=== PATIENT | female | born 2000 | race Caucasian/White ===

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

== ENCOUNTER 2022-08-05 13:39 | Emergency (ER) | payer OTHER, SELFPAY ==
[2022-08-05 15:06] VITALS: BP 129/76; PULSE 91; RESP 16; TEMP 36.4; O2SAT 100
--- NOTE | 2022-08-05 16:35 | ED.GENADULT ---
HPI - General Adult General Chief complaint: Urogenital-Female Stated complaint: uti Time Seen by Provider: 08/05/22 16:35 Source: patient Mode of arrival: ambulatory Limitations: no limitations History of Present Illness HPI narrative: 22-year-old female patient presents to the [facility] with complaints of urinary symptoms that started yesterday. Patient states she has had pain with urination, urgency, frequency and pressure to Cailin abdomen. Patient states she did get off of her. About 2 days ago. Patient states she is sexually active but that has been with only 1 person for the past 4 years and does not have any concerns for STDs. When questioned about her he allergic reaction to antibiotics patient states that she is not aware of any reactions due to this happen when she was very young and was only going by what her mother has told her. Patient states this far she is concerned she has never had any allergic reactions that she knows of. Related Data Allergies Allergy/AdvReac Type Severity Reaction Status Date / Time metoclopramide [From Reglan] Allergy Intermediate Nervousness Verified 10/04/21 17:39 cefprozil Allergy Mild Hives Verified 10/04/21 17:39 Cephalosporins Allergy Mild Hives Verified 10/04/21 17:39 nitrofurantoin Allergy Mild Hives Verified 10/04/21 17:39 Penicillins Allergy Mild Hives Verified 10/04/21 17:39 sulfamethoxazole Allergy Mild Hives / Verified 10/04/21 17:39 Red Face tramadol Allergy Mild HIVES Verified 10/04/21 17:39 trimethoprim Allergy Mild Hives / Verified 10/04/21 17:39 Red Face vancomycin Allergy Mild Itching Verified 10/04/21 17:39 NITRATE Allergy Mild Hives Uncoded 10/04/21 17:39 Review of Systems Review of Systems: CONSTITUTIONAL: Denies fever, chills, or sweats. EYES: Denies visual changes, redness, or discharge. ENT: Denies rhinorrhea, congestion, sore throat, or otalgia. CARDIOVASCULAR: Denies chest pain, palpitations, or edema. RESPIRATORY: Denies cough or dyspnea. GASTROINTESTINAL: Positive lower abdominal pressure, nausea, vomiting, or diarrhea. GENITOURINARY: Positive dysuria, positive hematuria. SKIN: Denies rash or itching. MUSCULOSKELETAL: Denies back pain, joint pain, or myalgia. NEUROLOGIC: Denies headache, numbness, or weakness. PSYCHIATRIC: Denies anxiety or depression. [facility] Past Medical History Medical History Anemia Anxiety (normal spontaneous vaginal delivery) and not yet delivered STD (female) VSD (ventricular septal defect) Surgical History Surgical History No history of previous surgery Family History Family History Father Diabetes mellitus Social History Social History Tobacco type: e-cigarettes/vaping Alcohol intake: never Substance use: never Gender identity (if verbalized by the patient): Female Sexual Orientation (if Verbalized by the Patient): Straight or Heterosexual Spiritual care concerns: No Comments At the time of my signature I agree with nursing past medical history, surgical, social, and family history. There is no relevant family history pertinent to the presenting complaint. Exam Narrative: GENERAL: Well-appearing, well-nourished, and in no acute distress. HEAD: Normocephalic, atraumatic. EYES: PERRLA and EOMI. ENT: Nares clear, no rhinorrhea or epistaxis. Mucous membranes moist. NECK: Supple. No lymphadenopathy CHEST: Clear to auscultation. No respiratory distress. HEART: Regular rate and rhythm. No murmur heard. Normal peripheral pulses. ABDOMEN: Soft, suprapubic tenderness on palpation, nondistended, normal active bowel sounds. No CVA tenderness on percussion EXTREMITIES: Normal range of motion. No edema. SKIN: Warm, dry, no rash. NEURO: No focal deficits. Alert and oriented x3.
== END 2022-08-05 16:50 | disposition home or self-care (01) ==
PROVIDERS: Emergency Provider Nurse Practitioner Family
DX: N39.0 Urinary tract infection, site not specified (principal); F17.290 Nicotine dependence, other tobacco product, uncomplicated
CPT/HCPCS: 81003; 81025; 87077; 87086; 87186; 99213; G0463

== ENCOUNTER 2022-10-15 15:39 | Emergency (ER) | payer OTHER, SELFPAY ==
[2022-10-15 15:55] VITALS: BP 132/70; PULSE 88; RESP 16; TEMP 36.4; O2SAT 100
[2022-10-15 15:56] VITALS: BP 132/70; PULSE 88; RESP 16; TEMP 36.4; O2SAT 100
--- NOTE | 2022-10-15 16:08 | ED.URI ---
HPI - URI/Sore Throat General Chief Complaint: Upper Respiratory Infection Stated Complaint: fever/sore throat Time Seen by Provider: 10/15/22 16:08 Source: patient Mode of arrival: ambulatory Limitations: no limitations History of Present Illness HPI Narrative: 22-year-old female presents with complaint of headache, sore throat, body aches, chills, fever for 2 days. States temp 103? F and it sinus. Is taking Motrin and Tylenol to treat the fever. Denies nausea vomiting diarrhea. Reports strep exposure at work. Works at a daycare. All systems reviewed and negative except as noted above. Related Data Allergies Allergy/AdvReac Type Severity Reaction Status Date / Time metoclopramide [From Reglan] Allergy Intermediate Nervousness Verified 10/15/22 15:56 cefprozil Allergy Mild Hives Verified 10/15/22 15:56 Cephalosporins Allergy Mild Hives Verified 10/15/22 15:56 nitrofurantoin Allergy Mild Hives Verified 10/15/22 15:56 Penicillins Allergy Mild Hives Verified 10/15/22 15:56 sulfamethoxazole Allergy Mild Hives / Verified 10/15/22 15:56 Red Face tramadol Allergy Mild HIVES Verified 10/15/22 15:56 trimethoprim Allergy Mild Hives / Verified 10/15/22 15:56 Red Face vancomycin Allergy Mild Itching Verified 10/15/22 15:56 NITRATE Allergy Mild Hives Uncoded 10/15/22 15:56 Review of Systems Review of Systems: CONSTITUTIONAL: reports fatigue, fever, chills, or sweats. EYES: Denies visual changes, redness, or discharge. ENT: Denies rhinorrhea, congestion . Reports sore throat. Denies otalgia. CARDIOVASCULAR: Denies chest pain, palpitations, or edema. RESPIRATORY: Denies cough or dyspnea. GASTROINTESTINAL: Denies abdominal pain, nausea, vomiting, or diarrhea. GENITOURINARY: Denies dysuria or hematuria. SKIN: Denies rash or itching. MUSCULOSKELETAL: Denies back pain, joint pain. Reports myalgia. NEUROLOGIC: Denies headache, numbness, or weakness. PSYCHIATRIC: Denies anxiety or depression. All other systems reviewed are negative, except as documented in HPI. [facility] Past Medical History Medical History Anemia Anxiety (normal spontaneous vaginal delivery) and not yet delivered STD (female) VSD (ventricular septal defect) Surgical History Surgical History No history of previous surgery Family History Family History Father Diabetes mellitus Social History Social History Tobacco type: e-cigarettes/vaping Alcohol intake: never Substance use: never Living arrangements: with family Gender identity (if verbalized by the patient): Female Sexual Orientation (if Verbalized by the Patient): Straight or Heterosexual Spiritual care concerns: No Comments At time of signature, agree with nursing past medical, surgical, social and family history. There is no relevant family history pertinent to the presenting complaint. Exam Narrative: GENERAL: This is a well-nourished, well-developed patient . Ill-appearing but in no distress. HEAD: normocephalic, atraumatic. EYES: PERRL. Sclera clear/white. Vision is grossly intact. EARS: External ears normal, auditory canals clear and without drainage, TMs normal without perforation. Hearing grossly intact. NOSE: External nose normal with no obvious nasal discharge, nares without redness, no rhinorrhea. THROAT: Mucous membranes moist, erythematous, swelling. Tonsils 1+ bilaterally. No exudates. NECK: Neck supple, non-tender without lymphadenopathy, masses or thyromegaly. CARDIOVASCULAR: Regular rate and rhythm without murmurs, gallops, or rubs. RESPIRATORY: Clear to auscultation. Breath sounds equal bilaterally. No wheezes, rales, or rhonchi. SKIN: warm, Dry, intact with no suspicious lesions or rash, good texture and turgor. NEURO: awake,
== END 2022-10-15 16:25 | disposition home or self-care (01) ==
PROVIDERS: Emergency Provider Nurse Practitioner Family
DX: J02.9 Acute pharyngitis, unspecified (principal); F17.290 Nicotine dependence, other tobacco product, uncomplicated
CPT/HCPCS: 87081; 87880; 99213; G0463

== ENCOUNTER 2022-11-17 18:30 | Emergency (ER) | payer OTHER, SELFPAY ==
[2022-11-17 18:36] VITALS: BP 128/86; PULSE 100; RESP 18; TEMP 37.2; O2SAT 100
--- NOTE | 2022-11-17 18:56 | ED.URI ---
HPI - URI/Sore Throat General Chief Complaint: Upper Respiratory Infection Stated Complaint: sore throat Time Seen by Provider: 11/17/22 18:48 Source: patient Mode of arrival: ambulatory Limitations: no limitations History of Present Illness HPI Narrative: Patient presents today complaining of headache, sore throat, body aches, nausea x2 days with fever up to 103.3 today. She currently rates her pain 5/10 and has been taking Tylenol and ibuprofen with some relief. Patient works at a daycare. She had COVID-19 3 weeks ago. Related Data Home Medications Medication Instructions Recorded Confirmed No Home Medications 11/17/22 11/17/22 Allergies Allergy/AdvReac Type Severity Reaction Status Date / Time metoclopramide [From Reglan] Allergy Intermediate Nervousness Verified 11/17/22 18:44 cefprozil Allergy Mild Hives Verified 11/17/22 18:44 Cephalosporins Allergy Mild Hives Verified 11/17/22 18:44 nitrofurantoin Allergy Mild Hives Verified 11/17/22 18:44 Penicillins Allergy Mild Hives Verified 11/17/22 18:44 sulfamethoxazole Allergy Mild Hives / Verified 11/17/22 18:44 Red Face tramadol Allergy Mild HIVES Verified 11/17/22 18:44 trimethoprim Allergy Mild Hives / Verified 11/17/22 18:44 Red Face vancomycin Allergy Mild Itching Verified 11/17/22 18:44 NITRATE Allergy Mild Hives Uncoded 10/15/22 15:56 Review of Systems Review of Systems: CONSTITUTIONAL: + body aches, fever EYES: Denies visual changes, redness, or discharge. ENT: Denies rhinorrhea, congestion, or otalgia.+ sore throat CARDIOVASCULAR: Denies chest pain, palpitations, or edema. RESPIRATORY: Denies cough or dyspnea. GASTROINTESTINAL: Denies abdominal pain, vomiting, or diarrhea.+ nausea GENITOURINARY: Denies dysuria or hematuria. SKIN: Denies rash, itching, or wounds. MUSCULOSKELETAL: Denies back pain, joint pain, or myalgia. NEUROLOGIC: Denies numbness, tingling, or weakness.+ headache PSYCH: Denies depression or anxiety. PMFSH Past Medical History Medical History Anemia Anxiety (normal spontaneous vaginal delivery) and not yet delivered STD (female) VSD (ventricular septal defect) Surgical History Surgical History No history of previous surgery Family History Family History Father Diabetes mellitus Social History Social History Tobacco type: e-cigarettes/vaping Alcohol intake: never Substance use: never Living arrangements: with family Gender identity (if verbalized by the patient): Female Sexual Orientation (if Verbalized by the Patient): Straight or Heterosexual Spiritual care concerns: No Comments At time of signature, I have reviewed and agree with nursing past medical, surgical, social and family history unless otherwise noted. Please see nursing chart for further information. There is no relevant family history pertinent to the presenting complaint Exam Narrative: GENERAL: Well-appearing, well-nourished, and in no acute distress. HEAD: Normocephalic, atraumatic. EYES: EOMI. No redness or drainage. Conjunctivae normal. ENT: Mucous membranes pink and moist. Nares clear. No rhinorrhea. TMs normal bilaterally. Throat slightly erythematous without edema or exudate. Uvula midline. NECK: Normal AROM. Supple. No lymphadenopathy. CHEST: No respiratory distress. Clear to auscultation. HEART: Regular rate and rhythm. Loud murmur appreciated, patient aware. EXTREMITIES: Normal range of motion. No edema. SKIN: Warm, dry, no rash. Capillary refill normal. Normal skin turgor. NEURO: No focal deficits. Alert and oriented x3. Gait steady. PSYCH: Normal affect. No signs of depression or anxiety. Course Course Level of Care: Express Care Visit Vital Signs V
== END 2022-11-17 19:20 | disposition home or self-care (01) ==
PROVIDERS: Emergency Provider Nurse Practitioner
DX: B34.9 Viral infection, unspecified (principal); F17.290 Nicotine dependence, other tobacco product, uncomplicated
CPT/HCPCS: 87081; 87804; 87880; 99213; G0463

== ENCOUNTER 2023-05-18 17:29 | Emergency (ER) | payer OTHER, SELFPAY ==
[2023-05-18 17:43] VITALS: BP 118/81; PULSE 135; RESP 16; TEMP 39.1; O2SAT 99
--- NOTE | 2023-05-18 17:43 | ED.URI ---
HPI - URI/Sore Throat General Chief Complaint: Upper Respiratory Infection Stated Complaint: Sore Throat Time Seen by Provider: 05/18/23 17:47 Source: patient, RN notes reviewed and old records reviewed Mode of arrival: ambulatory Limitations: no limitations History of Present Illness HPI Narrative: 23-year-old female presents to the [facility] with complaints of a sore throat that started yesterday. Reports fevers of 103. Reports sore throat for 2-3 days. Fever started last night. Patient denies any cough, urinary symptoms. No chest pain. Denies abdominal pain Reports that she does get followed by a can washer for her murmur. Onset (ago): day(s) Related Data Home Medications Medication Instructions Recorded Confirmed No Home Medications 11/17/22 05/18/23 Allergies Allergy/AdvReac Type Severity Reaction Status Date / Time metoclopramide [From Reglan] Allergy Intermediate Nervousness Verified 05/18/23 17:41 cefprozil Allergy Mild Hives Verified 05/18/23 17:41 Cephalosporins Allergy Mild Hives Verified 05/18/23 17:41 nitrofurantoin Allergy Mild Hives Verified 05/18/23 17:41 Penicillins Allergy Mild Hives Verified 05/18/23 17:41 sulfamethoxazole Allergy Mild Hives / Verified 05/18/23 17:41 Red Face tramadol Allergy Mild HIVES Verified 05/18/23 17:41 trimethoprim Allergy Mild Hives / Verified 05/18/23 17:41 Red Face vancomycin Allergy Mild Itching Verified 05/18/23 17:41 NITRATE Allergy Mild Hives Uncoded 05/18/23 17:41 Review of Systems Review of Systems: All systems reviewed & are unremarkable except as noted in HPI and below Constitutional: Constitutional: Reports as per HPI and Reports fever(s) Eyes: Eyes: Reports no additional eye complaints ENT: Reports as per HPI and Reports sore throat Cardiovascular: Cardiovascular: Reports no additional cardiovascular complaints, Denies chest pain and Denies dyspnea Respiratory: Respiratory: Reports no additional respiratory complaints, Denies chest congestion, Denies cough and Denies dyspnea Gastrointestinal: Gastrointestinal: Reports no additional gastrointestinal complaints, Denies abdominal pain, Denies nausea and Denies vomiting Musculoskeletal: Musculoskeletal: Reports no additional musculoskeletal complaints Integumentary/Breasts: Skin/Breast: Reports system reviewed and no additional complaints, except as docu Neurologic: Reports system reviewed and no additional complaints, except as documented Psychiatric: Psychiatric: Reports no additional psychiatric complaints Allergic/Immunologic: Allergic/Immunologic: Reports no additional allergic/immunologic complaints PMFSH Past Medical History Medical History Anemia Anxiety (normal spontaneous vaginal delivery) and not yet delivered STD (female) VSD (ventricular septal defect) Surgical History Surgical History No history of previous surgery Family History Family History Father Diabetes mellitus Social History Social History Tobacco type: e-cigarettes/vaping Alcohol intake: never Substance use: never Living arrangements: with family Gender identity (if verbalized by the patient): Female Sexual Orientation (if Verbalized by the Patient): Straight or Heterosexual Spiritual care concerns: No Comments At the time of my signature, I reviewed and agree with the nursing past medical, surgical, social, and family history. There is no relevant family history pertinent to the patient complaint. Exam Const: General: cooperative, healthy appearing, comfortable, no acute distress, well developed, alert and well nourished Nutritional Appearance: well nourished Orientation/consciousness: patient oriented x3 Limitations: no limitations HENMT: Head: no
[2023-05-18] MEDS: ONDANSETRON HCL ODT 4 MG TABLET SUBLINGUAL (17:49)
[2023-05-18 17:50] VITALS: TEMP 39.1
[2023-05-18] MEDS: IBUPROFEN 600 MG TABLET PO (17:50)
[2023-05-18 18:12] VITALS: TEMP 38.6
[2023-05-18 18:27] VITALS: PULSE 123; TEMP 38.6; O2SAT 97
== END 2023-05-18 18:33 | disposition home or self-care (01) ==
PROVIDERS: Emergency Provider Nurse Practitioner
DX: B34.9 Viral infection, unspecified (principal); F17.219 Nicotine dependence, cigarettes, with unspecified nicotine-induced disorders; Z20.822 Contact with and (suspected) exposure to COVID-19
CPT/HCPCS: 87081; 87426; 87804; 87880; 99213; A9270; C9803; G0463

== ENCOUNTER 2024-01-23 19:13 | Emergency (ER) | payer OTHER, SELFPAY ==
--- NOTE | 2024-01-23 19:18 | ED.URI ---
HPI - URI/Sore Throat General Chief Complaint: Upper Respiratory Infection Stated Complaint: sore throat,fever Time Seen by Provider: 01/23/24 19:18 Source: patient Mode of arrival: ambulatory Limitations: no limitations History of Present Illness HPI Narrative: 23-year-old female presents with complaint of sore throat, fatigue, body aches, fever for 4 days. Sore throat pain worse with swallowing. Reports progressively worsening of swelling. also reports nausea. Has vomited twice. Able to keep down water. All systems reviewed and negative except as noted above. Related Data Home Medications Medication Instructions Recorded Confirmed No Home Medications 11/17/22 05/18/23 Allergies Allergy/AdvReac Type Severity Reaction Status Date / Time metoclopramide [From Reglan] Allergy Intermediate Nervousness Verified 01/23/24 19:21 cefprozil Allergy Mild Hives Verified 01/23/24 19:21 Cephalosporins Allergy Mild Hives Verified 01/23/24 19:21 nitrofurantoin Allergy Mild Hives Verified 01/23/24 19:21 Penicillins Allergy Mild Hives Verified 01/23/24 19:21 sulfamethoxazole Allergy Mild Hives / Verified 01/23/24 19:21 Red Face tramadol Allergy Mild HIVES Verified 01/23/24 19:21 trimethoprim Allergy Mild Hives / Verified 01/23/24 19:21 Red Face vancomycin Allergy Mild Itching Verified 01/23/24 19:21 NITRATE Allergy Mild Hives Uncoded 01/23/24 19:21 Review of Systems Review of Systems: CONSTITUTIONAL: reports fever, chills, or sweats. EYES: Denies visual changes, redness, or discharge. ENT: Denies rhinorrhea, congestion . Reports sore throat. Denies otalgia. CARDIOVASCULAR: Denies chest pain, palpitations, or edema. RESPIRATORY: Denies cough or dyspnea. GASTROINTESTINAL: Denies abdominal pain, nausea, vomiting, or diarrhea. GENITOURINARY: Denies dysuria or hematuria. SKIN: Denies rash or itching. MUSCULOSKELETAL: Denies back pain, joint pain, or myalgia. NEUROLOGIC: Denies headache, numbness, or weakness. PSYCHIATRIC: Denies anxiety or depression. All other systems reviewed are negative, except as documented in HPI. [facility] Past Medical History Medical History Anemia Anxiety (normal spontaneous vaginal delivery) and not yet delivered STD (female) VSD (ventricular septal defect) Surgical History Surgical History No history of previous surgery Family History Family History Father Diabetes mellitus Social History Social History Tobacco type: e-cigarettes/vaping Alcohol intake: never Substance use: never Living arrangements: with family Gender identity (if verbalized by the patient): Female Sexual Orientation (if Verbalized by the Patient): Straight or Heterosexual Spiritual care concerns: No Comments At time of signature, agree with nursing past medical, surgical, social and family history. There is no relevant family history pertinent to the presenting complaint. Exam Narrative: GENERAL: This is a well-nourished, well-developed patient, in no apparent distress. HEAD: normocephalic, atraumatic. EYES: PERRL. Sclera clear/white. Vision is grossly intact. EARS: External ears normal, auditory canals clear and without drainage, TMs normal without perforation. Hearing grossly intact. NOSE: External nose normal with no obvious nasal discharge, nares without redness, no rhinorrhea. THROAT: Mucous membranes moist, erythema, swelling and exudates. Tonsils 1+ bilaterally. NECK: Neck supple, non-tender without lymphadenopathy, masses or thyromegaly. CARDIOVASCULAR: Regular rate and rhythm without murmurs, gallops, or rubs. RESPIRATORY: Clear to auscultation. Breath sounds equal bilaterally. No wheezes, rales, or rhonchi. SKIN: warm, Dry, intact with no suspi
[2024-01-23 19:27] VITALS: BP 127/81; PULSE 106; RESP 18; TEMP 38.2; O2SAT 99
== END 2024-01-23 19:55 | disposition home or self-care (01) ==
PROVIDERS: Emergency Provider Nurse Practitioner Family; PCP Physician Assistant
DX: J02.0 Streptococcal pharyngitis (principal); F17.290 Nicotine dependence, other tobacco product, uncomplicated
CPT/HCPCS: 87081; 87880; 99213; G0463

== ENCOUNTER 2024-11-11 18:57 | Emergency (ER) | payer SELFPAY ==
--- NOTE | 2024-11-11 19:05 | ED_ITS ---
HPI - URI/Sore Throat General Chief Complaint: Upper Respiratory Infection Stated Complaint: Sinus/Ear Irritation/Dizziness Time Seen by Provider: 11/11/24 19:07 Source: patient, RN notes reviewed and old records reviewed Mode of arrival: ambulatory Limitations: no limitations History of Present Illness HPI Narrative: 24-year-old female presents to the [facility] with 10 day history of sinus pressure, 2 days of ear pressure and intermittent dizziness. Has taken Tylenol. Related Data Allergies Allergy/AdvReac Type Severity Reaction Status Date / Time metoclopramide (From Reglan) Allergy Intermediate Nervousness Verified 11/11/24 19:01 cefprozil Allergy Mild Hives Verified 11/11/24 19:01 Cephalosporins Allergy Mild Hives Verified 11/11/24 19:01 nitrofurantoin Allergy Mild Hives Verified 11/11/24 19:01 Penicillins Allergy Mild Hives Verified 11/11/24 19:01 sulfamethoxazole Allergy Mild Hives / Verified 11/11/24 19:01 Red Face tramadol Allergy Mild HIVES Verified 11/11/24 19:01 trimethoprim Allergy Mild Hives / Verified 11/11/24 19:01 Red Face vancomycin Allergy Mild Itching Verified 11/11/24 19:01 NITRATE Allergy Mild Hives Uncoded 11/11/24 19:01 Review of Systems Review of Systems: All systems reviewed & are unremarkable except as noted in HPI and below Constitutional: Constitutional: Reports no additional constitutional complaints ENT: Reports as per HPI Cardiovascular: Cardiovascular: Reports no additional cardiovascular complaints, Denies chest pain and Denies dyspnea Respiratory: Respiratory: Reports no additional respiratory complaints, Denies chest congestion, Denies cough and Denies dyspnea Musculoskeletal: Musculoskeletal: Reports no additional musculoskeletal complaints Integumentary/Breasts: Skin/Breast: Reports system reviewed and no additional complaints, except as docu PMFSH Past Medical History Medical History Anemia Anxiety (normal spontaneous vaginal delivery) and not yet delivered STD (female) VSD (ventricular septal defect) Surgical History Surgical History No history of previous surgery Family History Family History Father Diabetes mellitus Social History Social History Tobacco type: e-cigarettes/vaping Alcohol intake: never Substance use: never Living arrangements: with family Gender identity (if verbalized by the patient): Female Sexual Orientation (if Verbalized by the Patient): Straight or Heterosexual Spiritual care concerns: No Comments At the time of my signature, I reviewed and agree with the nursing past medical, surgical, social, and family history. There is no relevant family history pertinent to the patient complaint. Exam Const: General: cooperative, healthy appearing, comfortable, no acute distress, well developed, alert and well nourished Nutritional Appearance: well nourished Orientation/consciousness: patient oriented x3 Limitations: no limitations HENMT: Head: normal to inspection Ears: hearing grossly normal bilaterally, external ears normal, TM normal on the right, EAC's normal, mastoids normal, no periauricular adenopathy and TM abnormal with fluid behind the TM on the left Face/Nose/Sinus: Normal external nose present, Normal nares present, No nasal discharge present, sinuses nontender and face symmetric Mouth: Yes Normal oral and palatal mucosa present, Yes lip normal, Yes tongue normal and Yes moist mucous membranes Throat: posterior oropharynx normal, uvula midline, post nasal drainage and no uvular edema Eyes: General: appearance normal, both eyes and all related structures Alignment and Position: alignment normal Neck: Neck: normal visual inspection, full ROM, no lymphadenopathy and no meningeal signs Chest: Chest palpation & inspection: normal inspection of the chest Resp: Effort & Inspection: normal respiratory effort and able to speak in complete sentences Auscultation: clear to auscultation bilaterally, no crackles, no rales, no rhonchi and no wheezes Cardio: Rate: regular rate Skin: General skin exam: normal color and no rashes or lesions noted Neuro: General: patient oriented x3, gait normal, moves all extremities and no meningeal signs Cognition (Neuro): normal cognition Speech: normal speech Gait exam (Neuro): Normal gait present Extrem: General: normal to inspection, full ROM, capillary refill normal and normal gait Psych: Appearance: grossly normal and well kempt Mental Status: mental status grossly normal Speech and movement: Normal speech and movement present and Clear speech present Affect: normal affect Attitude: cooperative Course Course Level of Care: Express Care Visit Vital Signs Vital signs: Vital Signs Temperature 98.1 F 11/11/24 19:07 Pulse Rate 95 11/11/24 19:07 Respiratory Rate 20 11/11/24 19:07 Blood Pressure 142/78 H 11/11/24 19:07 Pulse Oximetry 100 11/11/24 19:07 Oxygen Delivery Room Air 11/11/24 19:07 Temperature 98.1 F 11/11/24 19:07 Pulse Rate 95 11/11/24 19:07 Respiratory Rate 20 11/11/24 19:07 Blood Pressure 142/78 H 11/11/24 19:07 Pulse Oximetry 100 11/11/24 19:07 Oxygen Delivery Room Air 11/11/24 19:07 Reviewed MDM - URI/Sore Throat MDM Narrative Medical decision making narrative: Patient sitting in exam room. Nontoxic, vitals stable. Patient no acute distress. Patient presents with URI symptoms most likely allergies. No acute findings noted on exam. Patient appropriate for outpatient treatment with close follow Discharge instructions reviewed with patient, as well as provided in writing per nursing staff. The instructions also include specific and strict return/GO TO THE ER as well as f/u information. All questions have been answered, and the patient deny any further questions with discharge and discharge plan. Some parts of this dictation were generated by voice recognition software and may contain typographical and/or grammatical inaccuracies. Differential Diagnosis Differential diagnosis: Likely upper respiratory infection, otitis media, sinusitis, viral infection and bronchitis Critical Care Time Critical Care Time Critical Care Time: No Discharge Plan Discharge Clinical Impression: Acute serous otitis media of left ear, Post-nasal drainage, Acute dysfunction of left eustachian tube Patient Disposition: Home Condition: Stable Instructions: Allergies (ED), Fluid In The Ear (Serous Otitis Media) (ED), Postnasal Drip (DC) Additional Instructions: It is very important to treat your symptoms. Drink plenty of water, Gatorade, Pedialyte, ice pops or Jell-O. -Alternate Tylenol and Motrin per package directions for fever or pain. You can alternate every 4 hours -Antihistamine medication such as Zyrtec/Claritin/Jamia during the day can help improve symptoms. -doing daily nasal irrigations can help relieve pressure your sinuses. Things like a Neti pot -Use Flonase twice a day for 5 days then daily to help reduce the inflammation and dry up your sinuses. -You can also use Mucinex. Be sure to drink plenty of water with this medication at least 8 ounces with every dose and it is important to drink 8 to 10 glasses of water per day. Water is a natural decongestant -Eat and drink things that are easy to swallow, like tea or soup, or popsicles. -Oral rinses such as: Salt water gargles and/or may use topical anesthetic (eg. Chloraseptic spray) or lozenges to relieve dryness or throat pain). -Frequent hand washing or hand heavy equipment operating engineer is one of the best ways to prevent spread of infection. -Using a vaporizer or humidifier at night will also help thin secretions and help with coughing up phlegm. -Follow up with primary care provider in 7-10 days if condition is not improving - For new or worsening symptoms go directly to the nearest ER Patient Language: Com[place] Prescriptions: New methylprednisolone [Medrol (Prosper)] 4 mg tablets,dose pack See Rx Instructions PO .COMPLEX Qty: 21 0RF Rx Instructions: orally per package directions No Action azithromycin 250 mg tablet See Rx Instructions .ROUTE .COMPLEX Qty: 6 0RF Rx Instructions: For 250 mg dose pack: take 500 mg today (day 1), then 250 mg for 4 days (days 2-5) Follow-up/Referrals: Cheyanne,TAMRA Jackson [Primary Care Provider] - 1 Week ([facility] follow-up) Stand Alone Forms: Work/School Release IP Time of Disposition: 19:13
[2024-11-11 19:07] VITALS: BP 142/78; PULSE 95; RESP 20; TEMP 36.7; O2SAT 100
== END 2024-11-11 19:20 | disposition home or self-care (01) ==
PROVIDERS: Emergency Provider Nurse Practitioner; PCP Physician Assistant
DX: H65.01 Acute serous otitis media, right ear (principal); R09.82 Postnasal drip; H69.92 Unspecified Eustachian tube disorder, left ear; F17.290 Nicotine dependence, other tobacco product, uncomplicated; Q21.0 Ventricular septal defect
CPT/HCPCS: 99213; G0463